=== PATIENT | male | born 1930 | race Caucasian/White ===

== ENCOUNTER 2017-01-03 12:00 | Emergency (ER) | payer BC ==
[~2017-01-03] VITALS: Ht 177.8 cm; Wt 89.4 kg
[2017-01-03] MEDS ORDERED: TETANUS-DIPTH-ACEL PERTUSSIS 0.5ML SYRG IM ONE (14:45)
[2017-01-03] MEDS ORDERED: BACITRACIN TOP OINT 1 UD PKG TOP ONE (14:45)
[2017-01-03 15:09] VITALS: BP 145/82
== END 2017-01-03 15:19 | disposition home or self-care (01) ==
LOC: ER 12:00
DX: S60.811A Abrasion of right wrist, initial encounter (principal); M54.2 Cervicalgia; M54.9 Dorsalgia, unspecified; V49.9XXA Car occupant (driver) (passenger) injured in unspecified traffic accident, initial encounter; Y93.89 Activity, other specified; Y99.8 Other external cause status; Y92.410 Unspecified street and highway as the place of occurrence of the external cause
CPT/HCPCS: 72125; 73100; 81025; 90471; 90715; 94761; 96372